=== PATIENT | female | born 1985 | race Caucasian/White ===

== ENCOUNTER 2022-08-02 15:33 | Outpatient (CLI) | payer OTHER, SELFPAY ==
[2022-08-02 19:57] LABS: Alanine Aminotransferase 22 U/L (6-35); Albumin Level 4.2 g/dL (3.5-5.1); Alkaline Phosphatase 68 U/L (38-126); Anion Gap 6 mmol/L (8-16); Aspartate Amino Transferase 23 U/L (14-36); Bilirubin,Total 0.6 mg/dL (0.2-1.3); Blood Urea Nitrogen 12 mg/dL (7-17); Calcium 9.1 mg/dL (8.4-10.2); Carbon Dioxide 28 mmol/L (22-30); Chloride 104 mmol/L (98-107); Cholesterol 192 mg/dL (0-200); Estimated Glomerular Filt Rate > 60; Glucose 94 mg/dL (65-110); HDL Direct 42 mg/dL; Potassium 4.1 mmol/L (3.4-5.0); Sodium 138 mmol/L (137-145); Triglycerides 130 mg/dL (<150)
[2022-08-02 20:09] LABS: LDL Cholesterol Direct 115 mg/dL
[2022-08-02 21:05] LABS: Thyroid Stimulating Hormone Reflex 0.669 uIU/mL (0.465-4.68)
[2022-08-02 21:34] LABS: Hemoglobin A1C 5.1 % (<5.7)
== END 2022-08-02 15:34 | disposition home or self-care (01) ==
LOC: ANHGOSHLAB 15:35
PROVIDERS: PCP Family Medicine; Visit Provider Family Medicine
DX: E28.2 Polycystic ovarian syndrome (principal); E78.5 Hyperlipidemia, unspecified
CPT/HCPCS: 36415; 80053; 80061; 83036; 84443

== ENCOUNTER 2022-08-24 08:43 | Outpatient (CLI) | payer OTHER, SELFPAY ==
--- NOTE | 2022-09-12 18:34 | WPDHOMESLEEP ---
Sleep Study - Home Unattended Date of Study: 08/24/22 Ordering Provider: Andrea Melgoza MD Interpreting Provider: Marissa Haywood, DO Home Sleep Study Type: Watch PAT Height: 1.7 m Weight: 122.47 kg Body Mass Index: 42.3 Neck Circumference (inches): 15.75 [place]: 18 Reason for Sleep Study Loud snoring, daytime hypersomnia Sleep History The patient is a 37-year-old female with depression, anxiety, PCOS and hypertension that had a sleep study ordered for evaluation of sleep apnea. The patient occasionally awakens from sleep short of breath. She frequently awakens at night with heartburn, belching or cough. She constantly snores loudly enough that others complain. He rarely has trouble sleeping when she has a cold. She occasionally wakes up gasping for air throughout the night. She frequently has breathing problems at night observed by herself or others. He rarely sweats excessively at night. He rarely has heart palpitations or irregular heartbeats during the night. She occasionally falls asleep during the day. She occasionally falls asleep while driving. She denies cataplexy and hypnagogic / hypnopompic hallucinations. She frequently has trouble at school or work due to sleepiness. She rarely feels unable to move when waking up or falling asleep. He rarely feels afraid of going to sleep. She rarely has nightmares and rarely remembers her dreams. She occasionally feels sad, depressed and anxious. She occasionally has muscular tension. She rarely notices parts of her body jerk. He denies kicking during the night. She denies having crawling and aching feelings in her legs as well as leg pain during the night. She rarely grinds her teeth during sleep but never awakens with morning jaw pain. She is frequently bothered by pain during the day but never awakened by pain during the night. She occasionally wakes up feeling stiff in the morning. She occasionally wakes up with sore or achy muscles. She occasionally wakes up with pain in the neck, spine or other joints. She goes to bed between 10-11 p.m. on both weekdays and weekends. It takes her less than 15 minutes to fall asleep. She wakes up 1-3 times throughout the night for unknown reasons. It can take her anywhere from 15 minutes to 2-1/2 hours to fall asleep. He wakes up between 6-7 a.m. on both weekdays and weekends. She typically gets 5-7 hours of sleep per night. She stays in bed for up to 15 minutes in the morning after waking up. She currently lives with her and 2 cents. She does not consume any caffeinated beverages within 2 hours of bedtime. She does not engage in physical exercise before bedtime. She will watch television before falling asleep. She denies taking naps in the afternoon or the evening. She does not consume any caffeinated beverages throughout the day. She denies tobacco and alcohol use. She uses marijuana recreationally. [facility] Past Medical History Medical History Obesity Family History Family History Grandparent Family history of elevated blood lipids Carcinoma of colon Family history of malignant neoplasm of breast Diabetes mellitus Social History Social History Smoking status: Former smoker Second hand tobacco smoke exposure: No Alcohol intake: never Substance use type: marijuana Medications Home Medications Medication Instructions Recorded Confirmed Type sertraline 50 mg tablet 150 mg PO DAILY 05/03/20 05/03/20 History lisinopril 10 mg tablet 10 mg PO DAILY #90 tabs 08/02/22 08/02/22 Rx semaglutide (weight loss) 0.25 0.25 mg (0.5 mL) subcut WEEKLY #2 08/02/22 08/02/22 Rx mg/0.5 mL subcutaneous pen mL injector ([facility]) Sleep Procedure The sleep study was completed using [employer] a technically adequate device with s
[2022-09-12 18:47] VITALS: BMI 42.3
== END 2022-08-25 09:42 | disposition home or self-care (01) ==
LOC: ANHCSM 08:44
PROVIDERS: PCP Family Medicine; Visit Provider Family Medicine
DX: G47.33 Obstructive sleep apnea (adult) (pediatric) (principal)
CPT/HCPCS: 95800

== ENCOUNTER 2023-02-01 11:00 | Outpatient (CLI) | payer OTHER, SELFPAY ==
--- NOTE | ~2023-02-01 | XR_ITS ---
Lateral and Bowers views of the right calcaneus CLINICAL HISTORY: Pain FINDINGS: No fracture or dislocation seen. Minimal plantar calcaneal spur present. There is enthesopa thic change at the Achilles tendon insertion. IMPRESSION: Minimal plantar calcaneal spur. Enthesopathic change at the Achilles tendon insertion. Reviewed, dictated and finalized at [facility].
--- NOTE | ~2023-02-01 | XR_ITS ---
Lateral and Bowers views of the left calcaneus CLINICAL HISTORY: Pain FINDINGS: No fracture or dislocation seen. There is enthesopathic change at the Achilles tendon inser tion. Soft tissues are otherwise unremarkable. IMPRESSION: Enthesopathic change at the Achilles tendon insertion. Reviewed, dictated and finalized at location .
== END 2023-02-01 11:01 ==
PROVIDERS: PCP Family Medicine; Visit Provider Podiatrist Foot & Ankle Surgery
DX: M77.32 Calcaneal spur, left foot (principal); M77.31 Calcaneal spur, right foot
CPT/HCPCS: 73650